=== PATIENT | female | born 1960 | race Caucasian/White ===

== ENCOUNTER → 2024-06-01 | Day surgery (SDC) | payer OTHER, MEDICAID | LOC: MAMMO 07:01 | PROVIDERS: ATTEND Physician Assistant | DX: C50.911 Malignant neoplasm of unspecified site of right female breast (principal); N60.21 Fibroadenosis of right breast; R92.0 Mammographic microcalcification found on diagnostic imaging of breast | CPT/HCPCS: 19081; 76098; A4648; 88305; 88341; 88342; 88361 ==